=== PATIENT | male | born 1985 | race Caucasian/White ===

== ENCOUNTER 2018-05-02 10:44 | Day surgery (SDC) | payer BC ==
[2018-05-01 14:58] VITALS: BMI 35.4
[2018-05-02] VITALS (37 sets, daily range): BP systolic 93–155; BP diastolic 50–95; PULSE 56–70; RESP 12–24; Ht 180.3 cm; Wt 113.0 kg
[~2018-05-02] VITALS: Ht 180.3 cm; Wt 113.0 kg
[2018-05-02] MEDS ORDERED: HYDR25TA6 PO (11:05)
[2018-05-02] MEDS ORDERED: BACITRACIN/POLYMYXIN 28.35 GM OINT TOP ONE (12:13)
--- NOTE | 2018-05-02 12:40 | PREAC ---
Date/Time of Note Date/Time of Note DATE: 05/02/18 TIME: 12:40 Anesthesia Eval and Record Evaluation Time Pre-Procedure Interview DATE: 05/02/18 TIME: 12:40 Age 32 Sex male NPO: 8 hrs Preoperative diagnosis L hydrocele Planned procedure L hydrocelecomy Past Medical History Past Medical History: Includes Cardio: HTN Pulm: Other (pt has a cold and phlegm producing cough) GI: Morbid obesity Surgery & Anesthesia Issues No known issue Meds Anticoagulation: No Beta Federico within 24 hr: No Reason Beta Federico not given: Pt. not on B-Federico Reported Medications Hydrochlorothiazide* (Hydrochlorothiazide*) 25 Mg Tab, 25 MG PO DAILY, #30 TAB 05/02/18 Meds reviewed: Yes Allergies Coded Allergies: No Known Allergy (Unverified , 05/02/18) Allergies Reviewed: Yes Labs/Studies Labs Reviewed: Reviewed by anesthesiologist test: N/A Pre-procedure Exam Last vitals Vital Signs Date Temp Pulse Resp B/P (MAP) Pulse Ox O2 O2 Flow FiO2 Time Delivery Rate 05/02/18 97.4 68 16 136/95 99 Room Air 11:05 (109) Airway: Adequate mouth opening, Adequate thyromental dist Mallampati: Mallampati II Teeth: Normal Lung: Normal Heart: Normal ASA Physical Status ASA physical status: 2 Emergency: None Planned Anesthetic General/MAC: Mask, ETT, MAC Neuraxial: Spinal Pre-operative Attestations Prior to commencing anesthesia and surgery, the patient was re-evaluated, there was verification of: *The patient's identity *The results of appropriate recent lab work and preoperative vital signs *The above evaluation not changing prior to induction *Anesthetic plan, risk benefits, alternative and complications discussed with patient/family; questions answered; patient/family understands, accepts and wishes to proceed. PASTORA THOMAS May 02, 2018 12:40
--- NOTE | 2018-05-02 12:44 | HPN ---
Date/Time of Note Date/Time of Note DATE: 05/02/18 TIME: 12:41 Interval H&P Admission Note Pt. seen H&P reviewed: No system changes patient has a cough. Discussed with him doing the procedure under spinal anesthesia,benefits,risks and complications discussed.He is agreable to proceed DEUCE SLOAN MD May 02, 2018 12:44
[2018-05-02] MEDS ORDERED: MIDAZOLAM 1 MG/ML 2 ML INJ ONE ×2 (12:45→13:08)
[2018-05-02] MEDS ORDERED: BUPIVACAINE 0.5% (SDV) 30 ML INJ ONE (13:07)
[2018-05-02] MEDS ORDERED: CEFAZOLIN 1 GM INJ ONE (13:09)
[2018-05-02] MEDS ORDERED: BUPIVACAINE 0.5% (MPF) 30 ML INJ INJ ONE (13:14)
[2018-05-02] MEDS ORDERED: DIPHENHYDRAMINE 50 MG INJ IV PRN (13:30)
[2018-05-02] MEDS ORDERED: ONDANSETRON 4 MG INJ IV PRN (13:30)
[2018-05-02] MEDS ORDERED: ALBUTEROL 0.083% (NEB) 2.5 MG/3 ML AMP HHN PRN (13:30)
[2018-05-02] MEDS ORDERED: FENTAnyl 50 MCG/ML VIAL IV PRN ×2 (13:30)
[2018-05-02] MEDS ORDERED: MEPERIDINE 25 MG INJ IV PRN (13:30)
[2018-05-02] MEDS ORDERED: HYDROmorphONE 1 MG/5 ML IV SYRINGE IV PRN ×3 (13:30)
[2018-05-02] MEDS ORDERED: METOCLOPRAMIDE 10 MG INJ IV PRN (13:30)
[2018-05-02] MEDS ORDERED: NEOMYC/POLYMYX/BACIT 30 GM OINT TOP ONE (14:00)
--- NOTE | 2018-05-02 14:22 | OPR ---
Date/Time of Note Date/Time of Note DATE: 05/02/18 TIME: 14:15 Operative Report Procedure Date: May 02, 2018 Preoperative Diagnosis Large left hydrocele Postoperative Diagnosis Same Operation/Procedure Performed Left hydrocelectomy Surgeon see signature line Deputy County Clerk emergency medical technician basic Anesthesia Type: general Anesthesiologist: PASTORA THOMAS Estimated Blood Loss: 10 - 50 ml's Transfusion none Specimen Hydrocele sac Grafts/Implants none Tubes/Drains 10 mm flat YOLANDA drain Complications none Pt Condition Post Procedure: stable Disposition: PACU Indications Large left hydrocele Procedure Description Patient was brought to the operating room. He was given spinal anesthesia and then positioned in the supine position. Timeout was done and the patient was identified by his name, birthdate, the procedure and the side of the procedure. He was given 2 g of Ancef IV at the start of the procedure. The genital area was then prepped and draped in the usual sterile manner. A vertical incision was made over the left side of the scrotum and deepened through the different layers of the scrotal wall. The tissue between the scrotal skin and the hydrocele was very thick and fibrotic. The hydrocele was then delivered through the incision and then opened and the yellowish fluid drained out of. Then the hydrocele sac was excised and it was very thick and also fibrotic. All the bleeders were electrocoagulated and or suture ligated. Good hemostasis was obtained. A 10 mm flat YOLANDA drain was inserted through a different stab wound incision. Local anesthetic with half percent Marcaine was injected into the spermatic cord and also the scrotal skin. The subcutaneous tissue was approximated with 3-0 Vicryl running interlocked sutures. The skin approximated with running mattress sutures of 3-0 Vicryl. The YOLANDA drain was secured with a suture of 3-0 Vicryl and will be removed in about 3 4 days. The incision was then covered with a triple antibiotic ointment with a piece of Telfa and fluff dressing. The dressing was held in place was an extra large scrotal support. The patient tolerated the procedure well and was transferred to the recovery room in a stable and satisfactory condition. DEUCE SLOAN MD May 02, 2018 14:22
[2018-05-02] MEDS ORDERED: HYDROCODONE/APAP (5/325) TAB PO PRN (14:30)
[2018-05-02] MEDS ORDERED: LACTATED RINGER'S 1,000 ML IV ONE (16:00)
--- NOTE | 2018-05-03 07:28 | PAC ---
Date/Time of Note Date/Time of Note DATE: 05/03/18 TIME: 07:28 Post-Anesthesia Notes Post-Anesthesia Note Last documented vital signs Vital Signs Date Temp Pulse Resp B/P (MAP) Pulse Ox O2 O2 Flow FiO2 Time Delivery Rate 05/02/18 97.7 59 18 125/64 99 Room Air 17:51 (84) Activity: WNL Respiratory function: WNL Cardiovascular function: WNL Mental status: Baseline Pain reasonably controlled: Yes Hydration appropriate: Yes Nausea/Vomiting absent: Yes PASTORA THOMAS May 03, 2018 07:28
== END 2018-05-02 17:58 | disposition home or self-care (01) ==
LOC: SDS 10:44
PROVIDERS: ATTEND Urology
DX: N43.3 Hydrocele, unspecified (principal); I10 Essential (primary) hypertension
CPT/HCPCS: 55040; 88302; J0690; J2250; J2405; Z7512; Z7610